=== PATIENT | male | born 1970 | race Caucasian/White ===

== ENCOUNTER 2021-04-25 11:58 | Emergency (ER) | payer SELFPAY ==
--- NOTE | 2021-04-25 12:27 | EDM.PDOC ---
ED HPI GENERAL MEDICAL PROBLEM - General Chief Complaint: Respiratory Problem Stated Complaint: COUGHING UP BLOOD Time Seen by Provider: 04/25/21 12:25 - History of Present Illness INITIAL COMMENTS - FREE TEXT/NARRATIVE: 50-year-old male presents the emergency room with 2 episodes of hemoptysis. One was shortly before arrival the other was several hours ago. He is coughing up small amounts of blood with may be a smaller amount of sputum with it. Patient has not had problems like this in the past. Patient is noted to be very hypertensive when he arrives here. Patient does have a history of untreated hypertension. Patient states he no longer taking blood pressure medication because he lost his insurance.. Patient is not having associated chest pain chest pressure does not hurt for him to take a deep breath in. - Related Data Allergies Allergy/AdvReac Type Severity Reaction Status Date / Time No Known Allergies Allergy Verified 04/25/21 12:10 Home Meds: Home Meds hydrALAZINE [Apresoline] 25 mg PO Q8H #60 tab 04/25/21 [Rx] Past Medical History Cardiovascular History: Reports: Hypertension - Past Surgical History HEENT Surgical History: Reports: Eye Surgery, Oral Surgery GI Surgical History: Reports: Hernia Repair/Other Social & Family History - Tobacco Use Tobacco Use Status *Q: Current Every Day Tobacco User Years of Tobacco use: 30 Packs/Tins Daily: 1 - Caffeine Use Caffeine Use: Reports: Coffee - Recreational Drug Use Recreational Drug Use: No ED ROS GENERAL - Review of Systems Review Of Systems: See Below Constitutional: Reports: No Symptoms. Denies: Fever, Chills HEENT: Reports: No Symptoms Respiratory: Reports: Cough (Mild intermittent cough), Hemoptysis. Denies: Wheezing, Pleuritic Chest Pain Cardiovascular: Reports: No Symptoms. Denies: Chest Pain, Dyspnea on Exertion, Edema Endocrine: Reports: No Symptoms GI/Abdominal: Reports: No Symptoms : Reports: No Symptoms Musculoskeletal: Reports: No Symptoms Skin: Reports: No Symptoms Neurological: Reports: No Symptoms ED EXAM, GENERAL - Physical Exam Exam: See Below Exam Limited By: No Limitations General Appearance: Alert, No Apparent Distress Eye Exam: Bilateral Eye: Normal Inspection, Other (Difficult funduscopic examination) Ears: Normal External Exam, Normal Canal, Hearing Grossly Normal, Normal TMs Nose: Normal Inspection, Normal Mucosa, No Blood Throat/Mouth: Normal Inspection, Normal Lips, Normal Teeth, Normal Gums, Normal Oropharynx, Normal Voice, No Airway Compromise Neck: Normal Inspection, Supple, Non-Tender, Other (No JVD). No: Lymphadenopathy (L), Lymphadenopathy (R) Respiratory/Chest: No Respiratory Distress, Lungs Clear, Normal Breath Sounds Cardiovascular: Normal Peripheral Pulses, Regular Rate, Rhythm, No Edema GI/Abdominal: Normal Bowel Sounds, Soft, Non-Tender Extremities: Normal Inspection, Normal Range of Motion, Non-Tender Neurological: Alert, Oriented, Normal Cognition #1 Interpretation EKG Date: 04/25/21 Rhythm: NSR Rate (Beats/Min): 84 [place]: Normal P-Wave: Present QRS: Other (Significant LVH) ST-T: Other (Subtle ST elevation anterior leads minimal ST depression in inferior leads could be repolarization abnormality he is not having chest pain) QT: Normal Comparison: NA - No Prior EKG EKG Interpretation Comments: Abnormal EKG Course - Vital Signs Last Recorded V/S: Last Vital Signs Temp 36.6 C 04/25/21 12:06 Pulse 87 04/25/21 12:15 Resp 14 04/25/21 12:15 BP 223/117 H 04/25/21 17:06 Pulse Ox 97 04/25/21 12:15 - Orders/Labs/Meds Labs: Laboratory Tests 04/25/21 04/25/21 04/25/21 Range/Units 12:20 12:20 12:20 WBC 6.55 (4.23-9.07) K/mm3 RBC 4.78 (4.63-6.08) M/mm3 Hgb 15.0 (13.7-17.5) gm/dl Hct 43.4 (40.1-51.0) % MCV 90.8 (79.0-92.2) fl MCH 31.4 (25.7-32.2) pg MCHC 34.6 (32.2-35.5) g/dl RDW Std Deviation 45.1 H (35.1-43.9) fL Plt Count 252 (163-337) K/mm3 MPV 10.0 (9.4-12.3) fl Neut % (Auto) 66.6 (34.0-67.9) % Lymph % (Auto) 16.6 L (21.8-53.1) % Starr % (Auto) 14.7 H (5.3-12.2) % Eos % (Auto) 1.1 (0.8-7.0) Baso % (Auto) 0.5 (0.1-1.2) % Neut # (Auto) 4.37 (1.78-5.38) K/mm3 Lymph # (Auto) 1.09 L (1.32-3.57) K/mm3 Starr # (Auto) 0.96 H (0.30-0.82) K/mm3 Eos # (Auto) 0.07 (0.04-0.54) K/mm3 Baso # (Auto) 0.03 (0.01-0.08) K/mm3 PT 10.6 (9.7-12.0) SECONDS INR 0.99 APTT 31.4 (21.7-31.4) SECONDS D-Dimer, Quantitative 0.45 (0.19-0.50) mg/L Sodium 136 (136-145) mEq/L Potassium 3.5 (3.5-5.1) mEq/L Chloride 100 (98-107) mEq/L Carbon Dioxide 29 (21-32) mEq/L Anion Gap 10.5 (5-15) BUN 15 (7-18) mg/dL Creatinine 1.2 (0.7-1.3) mg/dL Est Cr Clr Drug Dosing 84.15 mL/min Estimated GFR (MDRD) > 60 (>60) mL/min BUN/Creatinine Ratio 12.5 L (14-18) Glucose 118 H (70-99) mg/dL Calcium 8.7 (8.5-10.1) mg/dL Total Bilirubin 0.7 (0.2-1.0) mg/dL AST 26 (15-37) U/L ALT 33 (16-63) U/L Alkaline Phosphatase 98 (46-116) U/L Troponin I < 0.017 (0.00-0.056) ng/mL Total Protein 7.7 (6.4-8.2) g/dl Albumin 4.2 (3.4-5.0) g/dl Globulin 3.5 gm/dL Albumin/Globulin Ratio 1.2 (1-2) SARS-CoV-2 RNA (MARISOL) (NEGATIVE) 04/25/21 Range/Units 15:20 WBC (4.23-9.07) K/mm3 RBC (4.63-6.08) M/mm3 Hgb (13.7-17.5) gm/dl Hct (40.1-51.0) % MCV (79.0-92.2) fl MCH (25.7-32.2) pg MCHC (32.2-35.5) g/dl RDW Std Deviation (35.1-43.9) fL Plt Count (163-337) K/mm3 MPV (9.4-12.3) fl Neut % (Auto) (34.0-67.9) % Lymph % (Auto) (21.8-53.1) % Starr % (Auto) (5.3-12.2) % Eos % (Auto) (0.8-7.0) Baso % (Auto) (0.1-1.2) % Neut # (Auto) (1.78-5.38) K/mm3 Lymph # (Auto) (1.32-3.57) K/mm3 Starr # (Auto) (0.30-0.82) K/mm3 Eos # (Auto) (0.04-0.54) K/mm3 Baso # (Auto) (0.01-0.08) K/mm3 PT (9.7-12.0) SECONDS INR APTT (21.7-31.4) SECONDS D-Dimer, Quantitative (0.19-0.50) mg/L Sodium (136-145) mEq/L Potassium (3.5-5.1) mEq/L Chloride (98-107) mEq/L Carbon Dioxide (21-32) mEq/L Anion Gap (5-15) BUN (7-18) mg/dL Creatinine (0.7-1.3) mg/dL Est Cr Clr Drug Dosing mL/min Estimated GFR (MDRD) (>60) mL/min BUN/Creatinine Ratio (14-18) Glucose (70-99) mg/dL Calcium (8.5-10.1) mg/dL Total Bilirubin (0.2-1.0) mg/dL AST (15-37) U/L ALT (16-63) U/L Alkaline Phosphatase (46-116) U/L Troponin I (0.00-0.056) ng/mL Total Protein (6.4-8.2) g/dl Albumin (3.4-5.0) g/dl Globulin gm/dL Albumin/Globulin Ratio (1-2) SARS-CoV-2 RNA (MARISOL) Negative (NEGATIVE) Meds: Medications Discontinued Medications Generic Name Dose Route Start Last Admin Trade Name Teresa PRN Reason Stop Dose Admin Hydralazine HCl 10 mg 04/25/21 12:55 04/25/21 13:51 Hydralazine 20 Mg/Ml Sdv IVPUSH 04/25/21 12:56 10 mg ONETIME ONE Administration Hydralazine HCl 10 mg 04/25/21 15:08 04/25/21 15:22 Hydralazine 20 Mg/Ml Sdv IVPUSH 04/25/21 15:09 10 mg ONETIME ONE Administration Hydralazine HCl Confirm 04/25/21 15:08 04/25/21 15:23 Hydralazine 20 Mg/Ml Sdv Administered 04/25/21 15:09 Not Given Dose 20 mg .ROUTE .STK-MED ONE Hydralazine HCl 12.5 mg 04/25/21 16:11 04/25/21 17:06 Hydralazine 25 Mg Tab PO 04/25/21 16:12 12.5 mg ONETIME ONE Administration - Re-Assessments/Exams Free Text/Narrative Re-Assessment/Exam: 04/25/21 18:29 The patient has been evaluated. His blood pressure was quite high slightly greater than a systolic of 250. Lab work was done chest x-ray was unremarkable EKG is consistent with long-term hypertension with LVH ST elevation in V1 V2 without chest pain troponin negative. D-dimer negative chest x-ray unremarkable. Initially patient was treated with a dose of IV hydralazine he had a modest improvement with this but this was followed up with a second dose of IV hydralazine and then ultimately a third dose of p.o. hydralazine 12.5 mg. Systolics at this time are running around 200-215 the patient feels okay. I will go and discharge home at this time on hydralazine 25 mg 3 times daily with close follow-up in the clinic. The patient agrees to follow-up in the clinic. Had a long discussion with the patient about using caution from change of position such as lying down to standing up and sitting to standing as he may get lightheaded briefly with these changes until his system gets used to this medication. He voices understanding. Departure - Departure Time of Disposition: 18:32 Disposition: Home, Self-Care 01 Clinical Impression: Severe hypertension - Discharge Information Prescriptions: hydrALAZINE [Apresoline] 25 mg PO Q8H #60 tab Instructions: Hypertension, Adult, [id number], Managing Your Hypertension Referrals: PCP,None [Primary Care Provider] - Forms: ED Department Discharge Additional Instructions: Return to the emergency room with any questions problems or concerning symptoms. Follow-up in the hospital clinic early this next week for recheck call first thing Tuesday morning for an appointment their number is [phone] As we discussed use caution until your system gets used to being on the new medication until your system gets used to the new medication use caution with change of position such as sitting to standing and lying to sitting and then to standing as we discussed. Sepsis Event Note (ED) - Evaluation Sepsis Screening Result: No Definite Risk - Focused Exam Vital Signs: Vital Signs Temp Pulse Resp BP BP Pulse Ox 04/25/21 17:06 223/117 H 04/25/21 12:15 87 14 219/141 H 97 04/25/21 12:06 36.6 C 47 L 18 252/162 H 98
[2021-04-25] MEDS ORDERED: hydrALAZINE 20 MG/ML SDV IVPUSH ONE ×2 (12:55→15:08)
--- NOTE | 2021-04-25 14:14 | CR ---
Chest: Portable view of the chest was obtained. Comparison: No prior chest imaging is available. Heart size and mediastinum are within normal limits. Minimal atelectasis is seen within the left base. Lungs otherwise are clear. No acute osseous abnormality is appreciated. Impression: 1. Incidental finding. 2. Nothing acute is appreciated on portable chest x-ray. Diagnostic code #2
[2021-04-25] MEDS ORDERED: hydrALAZINE 20 MG/ML SDV ONE (15:08)
[2021-04-25] MEDS ORDERED: hydrALAZINE 25 MG Tab PO ONE (16:11)
== END 2021-04-25 19:17 | disposition home or self-care (01) ==
LOC: JD.ED 11:58
DX: I10 Essential (primary) hypertension (principal); Z72.0 Tobacco use; R94.31 Abnormal electrocardiogram [ECG] [EKG]; Z20.822 Contact with and (suspected) exposure to COVID-19
CPT/HCPCS: 36415; 71045; 80053; 84484; 85025; 85379; 85610; 85730; 87635; 93005; 96374; 96376; 99284; A9270; J0360; 93010; U0002